=== PATIENT | male | born 2000 | race Caucasian/White ===

== ENCOUNTER 2018-05-20 19:40 | Emergency (ER) | payer OTHER ==
[2018-05-20 23:04] LABS: ADD MAN DIFF? NO
[2018-05-20 23:08] LABS: BASOPHIL # 0.1 10^3/ul (0.0-0.1); BASOPHILS % 0.4 % (0.0-2.0); EOSINOPHILS % 0.4 % (0.0-7.0); HEMATOCRIT 41.1 % (42.0-52.0); HEMOGLOBIN 13.9 g/dl (14.0-18.0); LYMPHOCYTES # 1.3 10^3/ul (0.8-2.9); LYMPHOCYTES % 11.7 % (18.0-55.0); MEAN CORPUSCULAR HEMOGLOBIN 30.5 pg (29.0-33.0); MEAN CORPUSCULAR HGB CONC 33.8 g/dl (32.0-37.0); MEAN CORPUSCULAR VOLUME 90.3 fl (72.0-104.0); MEAN PLATELET VOLUME 10.9 fl (7.4-10.4); MONOCYTE # 0.5 10^3/ul (0.3-0.9); MONOCYTES % 4.7 % (0.0-13.0); NEUTROPHIL # 9.3 10^3/ul (1.6-7.5); NEUTROPHILS % 82.4 % (30.0-74.0); PLATELET COUNT 306 10^3/UL (140-415); RED BLOOD COUNT 4.55 10^6/ul (4.70-6.10); RED CELL DISTRIBUTION WIDTH 12.5 % (11.5-14.5)
[2018-05-20 23:08] LABS: WHITE BLOOD COUNT 11.2 10^3/ul (4.8-10.8)
[2018-05-20] MEDS: SOD CHLORIDE 0.9% 1,000 ML IV (23:11)
[2018-05-20 23:52] LABS: ALANINE AMINOTRANSFERASE 26 IU/L (13-69); ALBUMIN 4.9 g/dl (3.3-4.9); ALBUMIN/GLOBULIN RATIO 1.48; ALKALINE PHOSPHATASE 72 IU/L (42-121); ANION GAP 12 (5-13); ASPARTATE AMINO TRANSFERASE 51 IU/L (15-46); BILIRUBIN,INDIRECT 0.7 mg/dl (0-1.1); BILIRUBIN,TOTAL 0.7 mg/dl (0.2-1.3); BLOOD UREA NITROGEN 16 mg/dl (7-20); CALCIUM 9.6 mg/dl (8.4-10.2); CARBON DIOXIDE 26 mmol/L (21-31); CHLORIDE 100 mmol/L (97-110); CREATININE 0.74 mg/dl (0.61-1.24); Estimated GFR > 60 mL/min (>60); GLUCOSE 107 mg/dl (70-220); SODIUM 138 mmol/L (135-144); TOTAL PROTEIN 8.2 g/dl (6.1-8.1)
[2018-05-20 23:58] LABS: AMPHETAMINE/METHAMPHETAMINE Negative (NEGATIVE); BARBITURATES Negative (NEGATIVE); BENZODIAZEPINES Negative (NEGATIVE); CANNABINOIDS Positive (NEGATIVE); COCAINE Negative (NEGATIVE); OPIATES Negative (NEGATIVE)
[2018-05-21 00:05] LABS: ETHANOL < 10.0 mg/dl (0-0)
== END 2018-05-21 01:55 | disposition home or self-care (01) ==
LOC: E/R 05-21 01:55
DX: R53.1 Weakness (principal); F12.10 Cannabis abuse, uncomplicated
CPT/HCPCS: 36415; 71045; 80053; 80307; 84443; 85025; 93005; 99285-25